=== PATIENT | female | born 1960 | race Two or more races ===

== ENCOUNTER 2024-07-17 10:07 | Day surgery (SDC) | payer MEDICAID ==
[~2024-07-17] VITALS: Ht 132.1 cm; Wt 56.8 kg
[2024-07-17] MEDS ORDERED: AMLO5TAB16 PO (10:21)
[2024-07-17] MEDS ORDERED: ENTE0.5T12 PO (10:23)
[2024-07-17 10:30] VITALS: BP 149/72; PULSE 86; RESP 21
[2024-07-17] MEDS ORDERED: midazolam 1 mg/ML 2ml injection ONE (11:29)
[2024-07-17] MEDS ORDERED: fentaNYL/PF 50MCG/1 ML 2ML syringe ONE (11:29)
[2024-07-17] MEDS ORDERED: propofol inj 20 ML IV ONE (11:48)
[2024-07-17 12:20] VITALS: BP 103/51; PULSE 77; RESP 15; O2SAT 100
[2024-07-17 12:30] VITALS: BP 112/55; PULSE 69; RESP 15; O2SAT 99
[2024-07-17 12:39] VITALS: BP 121/60; PULSE 70; RESP 17; O2SAT 99
[2024-07-17 12:45] VITALS: BP 106/56; PULSE 66; RESP 14; O2SAT 100
[2024-07-17 12:50] VITALS: BP 118/51; PULSE 66; RESP 16; O2SAT 99
== END 2024-07-17 13:00 | disposition home or self-care (01) ==
LOC: GI LAB 10:07
PROVIDERS: ATTEND Internal Medicine Gastroenterology
DX: R63.4 Abnormal weight loss (principal); K63.5 Polyp of colon; K29.50 Unspecified chronic gastritis without bleeding
CPT/HCPCS: 43239; 45385; J2250; J2704; J3010; J7030; Z7512; A4620; C1889